=== PATIENT | female | born 1995 | race Caucasian/White ===

== ENCOUNTER 2020-10-22 20:31 | Day surgery (SDC) | payer MEDICARE, OTHER ==
[2020-10-22 21:16] VITALS: BMI 45.4
[2020-10-22] MEDS ORDERED: hydrALAZINE 20 MG/ML VIAL SLOW IVP PRN (21:23)
== END 2020-10-22 23:59 | disposition home or self-care (01) ==
LOC: CSHLD/OP 20:31
PROVIDERS: ATTEND Family Medicine
DX: O36.8130 Decreased fetal movements, third trimester, not applicable or unspecified (principal); O10.913 Unspecified pre-existing hypertension complicating pregnancy, third trimester; O09.293 Supervision of pregnancy with other poor reproductive or obstetric history, third trimester; Z3A.36 36 weeks gestation of pregnancy; Z79.82 Long term (current) use of aspirin; Z88.8 Allergy status to other drugs, medicaments and biological substances
CPT/HCPCS: 76819; 99282

== ENCOUNTER 2020-10-27 09:51 | Outpatient (CLI) | payer OTHER ==
[2020-10-28 02:28] LABS: SARS-CoV-2 PCR by NAA Not Detected (NotDetected)
== END 2020-10-27 09:52 | disposition home or self-care (01) ==
LOC: CSHLAB 09:51
PROVIDERS: ATTEND Surgery
DX: Z20.822 Contact with and (suspected) exposure to COVID-19 (principal)
CPT/HCPCS: 87635; U0003; U0005

== ENCOUNTER 2020-10-30 17:47 | Inpatient (IN) | payer OTHER ==
[~2020-10-30 17:47] MED LIST: Bupivacaine 0.25% HCL 30 ML VIAL ONE; Lidocaine 2% 10 ML INJ ONE
[2020-10-30 19:06] VITALS: BMI 45.1
[2020-10-30] MEDS ORDERED: Diphenoxylate HCl/Atropine Tablet PO PRN ×2 (19:19)
[2020-10-30] MEDS ORDERED: Misoprostol 200 MCG TAB PR PRN (19:19)
[2020-10-30] MEDS ORDERED: hydrALAZINE 20 MG/ML VIAL SLOW IVP PRN (19:19)
[2020-10-30] MEDS ORDERED: Ibuprofen 800 MG TAB PO PRN (19:19)
[2020-10-30] MEDS ORDERED: Promethazine HCl 25 MG/ML VIAL IM PRN (19:19)
[2020-10-30] MEDS ORDERED: Methylergonovine 0.2 MG/ML VIAL IM PRN (19:19)
[2020-10-30] MEDS ORDERED: Acetaminophen 500 MG TAB PO PRN (19:19)
[2020-10-30] MEDS ORDERED: NS / Oxytocin 40 units/1000ml 1,000 ML IV PRN (19:19)
[2020-10-30] MEDS ORDERED: Butorphanol Tartrate 1 MG/ML VIAL SLOW IVP PRN (19:19)
[2020-10-30] MEDS ORDERED: Ondansetron PF 4 MG/2 ML Vial IVP PRN (19:19)
[2020-10-30] MEDS ORDERED: Lidocaine 1% (PF) 30 ML VIAL SC PRN (19:19)
[2020-10-30] MEDS ORDERED: Carboprost 250 MCG/ML AMP IM PRN (19:19)
[2020-10-30] MEDS: Misoprostol 100 MCG TAB VAG SCH (19:40)
[2020-10-30 20:06] LABS: Hemoglobin 10.1 g/dL (12.0-15.5); Mean Corpuscular Hemoglobin 27.8 pg (27.0-33.0); Mean Corpuscular Volume 87.1 fl (81.6-98.3); Mean Platelet Volume 11.8 fl (7.4-10.4); Platelet Count 235 10x3/uL (150-450); RBC Distribution Width 13.6 % (11.5-14.5); Red Blood Cell (RBC) Count 3.63 10x6/uL (3.90-5.03); White Blood Cell (WBC) Count 10.6 10x3/uL (3.5-10.5)
[2020-10-30 20:34] LABS: Hep B Surf Ag Non-Reactive S/CO (NonReactive); Syphilis Antibody Nonreactive (Nonreactive); Syphilis Antibody Index 0.03 S/CO (<1.00 Non-Reactive)
[2020-10-30 20:50] LABS: HBSAg Index 0.16 S/CO (0-0.99)
[2020-10-31] MEDS: Misoprostol 100 MCG TAB VAG SCH ×2 (01:09→14:21)
[2020-10-31] MEDS ORDERED: Fentanyl 4 mcg/Bup 0.1% Cadd 100 ML ONE ×2 (08:57→16:44)
[2020-10-31] MEDS ORDERED: Promethazine HCl 25 MG/ML VIAL IM PRN (13:35)
[2020-10-31] MEDS ORDERED: diphenhydrAMINE 50 MG/ML VIAL IVP PRN (13:35)
[2020-10-31] MEDS ORDERED: Lactated Ringer's 500 ML IV PRN (13:35)
[2020-10-31] MEDS ORDERED: Eucerin (Mineral Oil/Petrolatum,White) 30 gm Jar TOP PRN (13:35)
[2020-10-31] MEDS ORDERED: Naloxone HCl 0.4 mg/ml Vial IVP PRN ×2 (13:35)
[2020-10-31] MEDS ORDERED: Acetaminophen 325 MG TAB PO PRN (13:35)
[2020-10-31] MEDS ORDERED: Ondansetron PF 4 MG/2 ML Vial IVP PRN (13:35)
[2020-10-31] MEDS ORDERED: Communication Order-Pharmacy FS SCH (13:45)
[2020-10-31] MEDS ORDERED: Fentanyl 4 mcg/Bupivacaine 0.1% Cassette 100 ML EPIDURAL SCH (13:45)
[2020-10-31] MEDS ORDERED: ePHEDrine Sulfate 50 MG/10 ML VIAL SLOW IVP PRN (14:27)
[2020-10-31] MEDS ORDERED: NS w/ Oxytocin 30 units 500 ML ONE (14:28)
[2020-10-31] MEDS ORDERED: NS w/ Oxytocin 30 units 500 ML IVPB SCH ×3 (14:30)
[2020-10-31] MEDS: Lactated Ringer's 1,000 ML IV SCH (17:49)
[2020-10-31] MEDS ORDERED: Fentanyl 100 MCG/2 ML VIAL ONE (17:49)
[2020-10-31] MEDS ORDERED: Lanolin Ointment 7 GM TUBE TOP PRN (22:34)
[2020-10-31] MEDS ORDERED: Adacel (T-DAP) 0.5 ML SYRINGE IM ONE (22:34)
[2020-10-31] MEDS ORDERED: Milk Of Magnesia 30 ML UDCUP PO PRN (22:34)
[2020-10-31] MEDS ORDERED: hydrALAZINE 20 MG/ML VIAL SLOW IVP PRN (22:34)
[2020-10-31] MEDS ORDERED: Bisacodyl 10 MG SUPP PR PRN (22:34)
[2020-10-31] MEDS ORDERED: Polyethylene Glycol 3350 17 GM Packet PO PRN (22:34)
[2020-10-31] MEDS ORDERED: NS w/ Oxytocin 30 units 500 ML IV SCH (22:45)
[2020-10-31] MEDS: Ibuprofen 800 MG TAB PO SCH (23:15)
[2020-11-01] MEDS: Docusate Calcium (SURFAK) 240 MG CAP PO SCH ×3 (01:11→22:05)
[2020-11-01] MEDS: Lactated Ringer's 1,000 ML IV SCH (01:12)
[2020-11-01] MEDS: Misoprostol 100 MCG TAB VAG SCH (01:13)
[2020-11-01] MEDS: Ibuprofen 800 MG TAB PO SCH ×3 (06:00→22:04)
[2020-11-01] MEDS: Ferrous Sulfate 325 MG TAB PO SCH ×2 (08:19→15:38)
[2020-11-01] MEDS: Prenatal Vitamin 1 TAB PO SCH (10:00)
[2020-11-02] MEDS: Ibuprofen 800 MG TAB PO SCH (06:43)
[2020-11-02 08:25] VITALS: BP 120/76; TEMP 98.9
[2020-11-02] MEDS: Docusate Calcium (SURFAK) 240 MG CAP PO SCH (09:01)
[2020-11-02] MEDS: Prenatal Vitamin 1 TAB PO SCH (09:01)
[2020-11-02] MEDS: Ferrous Sulfate 325 MG TAB PO SCH (09:02)
== END 2020-11-02 13:02 | disposition home or self-care (01) | DRG 806 ==
LOC: CSHLD/OP 17:47 → CSHLD 17:56 → CSHPP 10-31 22:03
PROVIDERS: ADMIT Family Medicine; ATTEND Family Medicine
PROC: 3E0D7GC Introduction of Other Therapeutic Substance into Mouth and Pharynx, Via Natural or Artificial Opening (ICD-10-PCS; 2020-10-30)
PROC: 10E0XZZ Delivery of Products of Conception, External Approach (ICD-10-PCS; principal; 2020-10-31)
PROC: 10907ZC Drainage of Amniotic Fluid, Therapeutic from Products of Conception, Via Natural or Artificial Opening (ICD-10-PCS; 2020-10-31)
PROC: 10H07YZ Insertion of Other Device into Products of Conception, Via Natural or Artificial Opening (ICD-10-PCS; 2020-10-31)
DX: O10.92 Unspecified pre-existing hypertension complicating childbirth (principal); O99.354 Diseases of the nervous system complicating childbirth; Z37.0 Single live birth; Z3A.38 38 weeks gestation of pregnancy; Z20.822 Contact with and (suspected) exposure to COVID-19; O26.893 Other specified pregnancy related conditions, third trimester; O99.214 Obesity complicating childbirth; E66.9 Obesity, unspecified; G43.909 Migraine, unspecified, not intractable, without status migrainosus; B86 Scabies; Z79.899 Other long term (current) drug therapy; Z88.8 Allergy status to other drugs, medicaments and biological substances; O70.0 First degree perineal laceration during delivery
CPT/HCPCS: 36415; 51702; 85027; 86780; 86850; 86900; 86901; 87340; J2590; J3010; S0020

== ENCOUNTER 2022-05-07 08:58 | Emergency (ER) | payer OTHER ==
[2022-05-07] MEDS ORDERED: Iopamidol 300 61% 100 ML VIAL FS ONE (09:42)
[2022-05-07 09:50] LABS: Bilirubin 1+ (Negative); Blood, Urine Negative (Negative); Glucose, Urine (Dipstick) Normal (Negative); Ketone, Urine 5 mg/dL (Negative); Leukocyte 500 (Negative); Nitrite Negative (Negative); Protein, Urine (Dipstick) 30 mg/dl (Neg-Trace); Specific Gravity, Urine 1.025 (1.005-1.030)
[2022-05-07 09:50] LABS: #Eosinphils 0.1 10x3/uL (0.0-0.5); #Monocytes 0.5 10x3/uL (0.0-1.1); #Neutrophils 5.5 10x3/uL (1.5-8.4); %Basophils 0.4 % (0.0-2.0); %Eosinophils 0.7 % (0.0-6.0); %Neutrophils 81.8 % (40.0-75.0); Mean Corpuscular HGB CONC 33.6 g/dL (32.0-36.0); Mean Corpuscular Hemoglobin 30.6 pg (27.0-33.0); Mean Platelet Volume 11.7 fl (7.4-10.4); Platelet Count 242 10x3/uL (150-450); RBC Distribution Width 13.5 % (11.5-14.5); Red Blood Cell (RBC) Count 4.58 10x6/uL (3.90-5.03); White Blood Cell (WBC) Count 6.7 10x3/uL (3.5-10.5)
[2022-05-07 09:56] LABS: Clarity Slightly Cloudy (Clear)
[2022-05-07 09:56] LABS: ALT (SGPT) 13 U/L (8-55); AST (SGOT) 20 U/L (5-34); Albumin 4.7 g/dL (3.5-5.0); Alkaline Phosphatase 56 U/L (40-110); Anion Gap 15 mmol/L (10-20); BUN (Urea Nitrogen) 8 mg/dL (7.0-18.7); Bilirubin, Total 0.5 mg/dL (0.2-1.2); Calc. Creatinine Clearance 0 mL/min (70-130); Calcium 10.2 mg/dL (7.8-10.44); Carbon Dioxide 22 mmol/L (22-29); Chloride 106 mmol/L (98-107); Estimated GFR 91; Globulin 3.6 g/dL (2.4-3.5); Glucose 90 mg/dL (70-105); Lipase 33 U/L (8-78); Potassium 3.9 mmol/L (3.5-5.1); Protein, Total 8.3 g/dL (6.0-8.3); Sodium 139 mmol/L (136-145)
[2022-05-07] MEDS ORDERED: Dicyclomine 20 MG/2 ML VIAL ONE (09:56)
[2022-05-07] MEDS ORDERED: Ondansetron PF 4 MG/2 ML Vial ONE (09:56)
[2022-05-07 09:58] LABS: Pregnancy Test - Urine (BHCG) Negative (Negative); Pregu Control Background? CLEAR/WHITE (CLR/WHITE); Pregu Control Bar Appear? YES (CONTROL BAR); Specific Gravity 1.025 (1.002-1.036)
[2022-05-07 10:06] LABS: WBC/HPF 21-50 HPF (0-3)
[2022-05-07 10:07] LABS: Bacteria/HPF 2+ HPF (None Seen)
[2022-05-07] MEDS ORDERED: cefTRIAXone\\ROCEPHIN 2 GM VIAL ONE (11:34)
== END 2022-05-07 13:00 | disposition home or self-care (01) ==
LOC: CSHERS 08:58
DX: K52.9 Noninfective gastroenteritis and colitis, unspecified (principal); S22.060A Wedge compression fracture of T7-T8 vertebra, initial encounter for closed fracture; S63.92XA Sprain of unspecified part of left wrist and hand, initial encounter; N39.0 Urinary tract infection, site not specified; V89.2XXA Person injured in unspecified motor-vehicle accident, traffic, initial encounter
CPT/HCPCS: 72125; 72128; 74177; 80053; 81003; 81015; 81025; 83690; 85025; 87086; 87804; 96361; 96365; 96372; 96375; J0696; J2405; Q9967